=== PATIENT | female | born 1935 | race Caucasian/White ===

== ENCOUNTER 2017-02-08 08:54 | Emergency (ER) | payer OTHER ==
[~2017-02-08] VITALS: Wt 72.6 kg
[~2017-02-08 08:54] MED LIST: AMBIEN5 MG PO; APAP500 MG PO; ASPI-COR81 M1 PO; ASPIRIN BUFFER325 MG PO; ASPIRIN CHEWABL81 MG PO; CALCIUM + D 5001 TAB PO; CARTIA XT180 MG PO; CEFUROXIME AXE250 MG PO; CIPRO500 MG PO; CLONIDINE HYDR0.1 MG PO; CLONIDINE0.3 MG PO; DIGOXIN0.125 MG PO; DILTIAZEM HCL60 MG PEG; DILTIAZEM60 MG PO; DUONEB 3 MG/3 ML3 M1 INH; ELIQUIS2.5 M1 PO; EXELON3 MG PO; EXELON9.5 MG/24 TD; GLUCAGEN1 MG IM; HYDROCHLOROTHIA25 M1 PO; HYDROCODONE BIT1 T11 PO; LANOXIN0.125 MG PO; LANTUS100 U/ML SC; LASIX40 MG PO; LIPITOR80 MG PO; LISINOPRIL10 M1 PO; LISINOPRIL2.5 MG PO; LISINOPRIL40 MG PO; LOPRESSOR50 M1 PO; MACRODANTIN100 M1 PO; METOPROLOL TART50 M1 PO; MIRAPEX0.5 MG PO; NAMENDA-28 PO; NEXICLON X0.09 MG/ML PO; PLAVIX75 MG PO; PRAVASTATIN SOD40 MG PO; STOOL SOFT-STI1 EACH PO; SYNTHROID25 MCG PO; TRICOR145 MG PO; ULTRAM50 MG PO; VITAMIN D-32000 UNI1 PO; ZESTORETIC 12.51 TA3 PO; ZESTRIL10 MG PO
[2017-02-08] MEDS ORDERED: EXEL13.31 PO (09:18)
[2017-02-08] MEDS ORDERED: VISTARIL25 M2 PO (09:19)
[2017-02-08 09:33] LABS: PROTHROMBIN TIME 10.4 SECONDS (9.0-12.4)
[2017-02-08 09:35] LABS: BILIRUBIN NEGATIVE (NEGATIVE); BLOOD TRACE-INTACT (NEGATIVE); CLARITY CLEAR (CLEAR); COLOR YELLOW (YELLOW); GLUCOSE 1+ (NEGATIVE); KETONE NEGATIVE (NEGATIVE); LEUKO ESTERASE NEGATIVE (NEGATIVE); NITRITE NEGATIVE (NEGATIVE); PROTEIN 2+ (NEGATIVE); UROBILINOGEN 0.2 E.U./dl (0.2-1.0)
[2017-02-08 09:36] LABS: BASO % 0.2 % (0.0-1.0); EOS # 0.2 10*3/uL (0.0-0.4); EOS % 2.6 % (1.0-4.0); HEMATOCRIT 39.5 % (37.0-47.0); HEMOGLOBIN 13.3 g/dl (12.0-16.0); LYMPH # 1.2 10*3/uL (1.3-4.4); LYMPH % 14.5 % (27.0-41.0); MEAN CELL VOLUME 92.1 fl (81.0-99.0); MEAN CORPUSCULAR HGB CONC 33.7 g/dl (33.0-37.0); MEAN PLATELET VOLUME 12.4 fl (9.6-12.3); MONO # 0.5 10*3/uL (0.1-1.0); MONO % 5.5 % (3.0-9.0); NEUT # 6.3 10*3/uL (2.3-7.9); NEUT % 76.8 % (47.0-73.0); PLATELET COUNT AUTOMATED 129 10*3/uL (130-400); RED BLOOD COUNT 4.29 10*6/uL (4.10-5.10); WHITE BLOOD COUNT 8.1 10*3/uL (4.8-10.8)
[2017-02-08 09:39] LABS: ALKALINE PHOSPHATASE 163 U/L (45-117); BILIRUBIN, TOTAL 0.7 mg/dl (0.2-1.0); BUN 35 mg/dl (7-24); CARBON DIOXIDE 32 mmol/L (21-32); CHLORIDE 103 mmol/L (98-107); CPK 109 U/L (26-192); EST GLOM FILT AFRICAN AMERICAN > 60 ml/min; GLUCOSE 270 mg/dL (65-99); MAGNESIUM 2.1 mg/dL (1.5-2.1); POTASSIUM 3.4 mmol/L (3.5-5.1); SGOT/AST 36 IU/L (3-35); SGPT/ALT 33 U/L (12-78); SODIUM 145 mmol/L (136-145); TOTAL PROTEIN 6.2 gm/dL (6.4-8.2)
[2017-02-08 09:40] LABS: C-REACTIVE PROTEIN < 0.29 MG/DL (0-0.3); TROPONIN I < 0.015 ng/ml (<0.045)
[2017-02-08 09:46] LABS: HYALINE CAST 0-2
[2017-02-08 09:48] LABS: BACTERIA TRACE
[2017-02-08 09:49] LABS: RBC 0-2 rbc/hpf (0-2); WBC 0-2 wbc/hpf (0-5)
[2017-02-08 09:50] LABS: URINE REFLEX COMMENT NO (NO)
[2017-02-08 11:42] VITALS: BP 152/90
== END 2017-02-08 11:43 | disposition home or self-care (01) ==
LOC: ED 08:54
PROVIDERS: Student in an Organized Health Care Education/Training Program
DX: R53.83 Other fatigue (principal); R53.1 Weakness; F03.90 Unspecified dementia, unspecified severity, without behavioral disturbance, psychotic disturbance, mood disturbance, and anxiety; I99.8 Other disorder of circulatory system; E78.5 Hyperlipidemia, unspecified; I10 Essential (primary) hypertension; E11.9 Type 2 diabetes mellitus without complications; Z88.0 Allergy status to penicillin; Z79.82 Long term (current) use of aspirin; Z79.899 Other long term (current) drug therapy

== ENCOUNTER 2017-10-07 19:17 | Inpatient (IN) | payer OTHER ==
[~2017-10-07] VITALS: Ht 162.5 cm; Wt 72.8 kg
[2017-10-07] VITALS (7 sets, daily range): BP systolic 108–144; BP diastolic 63–79
--- NOTE | ~2017-10-07 | WRIGHTHP ---
[place], [place] PATIENT HISTORY AND PHYSICAL EXAM NAME: SAVANA GRIFFIN [facility] #: [id number] UNIT #: [id number] ROOM: 523 DOCTOR: JOVAN CHAN MD BIRTHDATE: [birth year] DOS: 10/07/2017 HISTORY OF PRESENT ILLNESS: The patient is 81-year-old, very well known to us. She is a resident at [facility]. Yesterday, the staff called saying that she was having some drooping of the left side of her mouth and so she was sent out. She also became dizzy and lightheaded. This morning, the patient does not remember anything about the events preceding her hospitalization. She was evaluated in the ER with a CT brain, which was negative. This morning, the patient feels good, does not have any complaints. Denies any chest pains, palpitations. PAST MEDICAL HISTORY: Significant for: 1. Chronic atrial fibrillation. She is not a candidate for anticoagulants. 2. History of diastolic CHF. 3. Failure to thrive. 4. Multi-infarct dementia. 5. History of CVA with encephalomalacia. 6. Benign hypertension. 7. Chronic lymphedema. 8. Type 2 diabetes mellitus, insulin-dependent. 9. Diabetic nephropathy stage 3. 10. Coronary artery disease of the [place] coronaries. MEDICATIONS: That she is on are aspirin 325 daily, atorvastatin 80 daily, vitamin D 2000 units daily, Colace 100 b.i.d., Lasix 40 b.i.d., levothyroxine 25 mcg at bedtime, lisinopril 10 daily, loratadine 10 daily, Namenda 10 b.i.d., metoprolol 75 b.i.d. ____ 0.5 at bedtime, Lantus 25 q.i.d. SOCIAL HISTORY: Nonsmoker, does not use any alcohol. Resident of [place]. PHYSICAL EXAMINATION: GENERAL: The patient is awake and alert and oriented. VITAL SIGNS: Blood pressure is 125/63, pulse is 64, respirations 18, temperature 97.9. LUNGS: Diminished breath sounds. No wheezes, rales or rhonchi heard. HEART: Regular. ABDOMEN: Obese, soft, nontender. EXTREMITIES: Without any edema. NEUROLOGIC: No neurological deficits noticed. The patient communicates fairly well. ASSESSMENT AND PLAN: 1. The patient with syncopal episode yesterday, possibility of vasovagal syncope, but because of the chronic atrial fibrillation and the fact that she is not on any anticoagulants makes it highly likely that she may have had ischemic event, which has now resolved. 2. Chronic atrial fibrillation, normal ventricular response, not a candidate for anticoagulants. 3. Benign hypertension, controlled. 4. Possibility of urinary tract infection. Urine culture will be sent. [place], [place] PATIENT HISTORY AND PHYSICAL EXAM NAME: SAVANA GRIFFIN UNIT #: [id number] ROOM: 523 DOCTOR: JOVAN CHAN MD BIRTHDATE: [birth year] 5. Acute kidney injury. Slow IV hydration has been ordered. We will hold off on the diuretics. JOVAN CHAN MD CM:HISPHYS:PATIENT HISTORY AND PHYSICAL EXAMINATION 9 JOVAN CHAN MD 10/08/1749 interface
--- NOTE | ~2017-10-07 | DS ---
[place], [place] DISCHARGE SUMMARY NAME[id number] UNIT #: [id number] ROOM: 523 DOCTOR: JOVAN CHAN MD BIRTHDATE: [birth year] DOS: 10/09/2017 DIAGNOSES: 1. Vasovagal episode. 2. Transient ischemic event. 3. Chronic atrial fibrillation, not a candidate for anticoagulants. 4. Benign hypertension. 5. Multi-infarct dementia. 6. History of diastolic congestive heart failure. 7. Acute kidney injury, possibly from diuretics. 8. History of cerebrovascular accident with encephalomalacia. 9. Chronic lymphedema. 10. Type 2 diabetes mellitus, insulin-dependent. 11. Diabetic nephropathy, stage 3. 12. History of coronary artery disease of [place] coronaries. 13. Possible urinary tract infection, urine culture is still pending. HOSPITAL COURSE: The patient is known to us from [facility], was brought into the Emergency Room after the staff noticed that she was becoming dizzy, had a syncopal episode and had a droopy left side of the mouth. Please see H and P for details. She did not have any neurological deficits on admission examination. The patient was found to have acute kidney injury and possibility of UTI. She was placed on IV antibiotics and IV fluids. Lasix dosage was cut back. She has tolerated the IV Rocephin so far. Urine culture is still pending. Carotid Doppler was negative. CT brain attack was negative, except for encephalomalacia from previous CVA. Blood sugars are fairly controlled. The patient is relatively stable this morning and is not having any new problems. Plan is to discharge her to home. She does have quite low blood sugars which need to be carefully monitored at the half-way and possibly cut back on the dosage of the insulin if needed. [place], [place] DISCHARGE SUMMARY NAME: SAVANA GRIFFIN UNIT #: [id number] ROOM: 523 DOCTOR: JOVAN CHAN MD BIRTHDATE: [birth year] JOVAN CHAN MD CM:DISCHARG [id number] JOVAN CHAN MD 10/09/17 1006 interface
--- NOTE | ~2017-10-07 | PR ---
[place], [place] PROGRESS NOTE NAME: SAVANA GRIFFIN [facility] #: [id number] UNIT #: [id number] ROOM: 523 DOCTOR: JOVAN CHAN MD BIRTHDATE: [birth year] DOS: SUBJECTIVE: The patient is not having any new problems. She is awake and alert and fairly oriented this morning, did recognize me. OBJECTIVE: VITAL SIGNS: Graphic trend shows blood pressure is 122/57, pulse of 85, respirations 18, temperature 97.2. LUNGS: Diminished breath sounds. No wheezes, rales, rhonchi heard. HEART: Regular. ABDOMEN: Obese, soft, nontender. EXTREMITIES: Without any edema. DIAGNOSTIC DATA: Ultrasound of the carotids was negative. ASSESSMENT AND PLAN: 1. Syncopal episode, possibly vasovagal. The patient may have had a transient ischemic event which has resolved. She is high risk because of atrial fibrillation and inability to take anticoagulants. 2. Chronic atrial fibrillation, controlled. 3. Benign hypertension, controlled. 4. Possibility of urinary tract infection. Cultures still not available, but the patient is stable and the plan is to discharge her back to [facility] on p.o. antibiotics. JOVAN CHAN MD CM:PNTRANS [phone] JOVAN CHAN MD 10/09/17 1123 interface
[~2017-10-07 19:17] MED LIST changes: +EXEL13.31 PO; +VISTARIL25 M2 PO
[2017-10-07 19:42] LABS: BASO % 0.3 % (0.0-1.0); EOS # 0.1 10*3/uL (0.0-0.4); HEMATOCRIT 42.4 % (37.0-47.0); HEMOGLOBIN 14.1 g/dl (12.0-16.0); LYMPH # 0.6 10*3/uL (1.3-4.4); LYMPH % 9.2 % (27.0-41.0); MEAN CELL VOLUME 93.6 fl (81.0-99.0); MEAN CORPUSCULAR HGB 31.1 pg (27.0-31.0); MEAN CORPUSCULAR HGB CONC 33.3 g/dl (33.0-37.0); MEAN PLATELET VOLUME 12.1 fl (9.6-12.3); MONO # 0.3 10*3/uL (0.1-1.0); MONO % 4.7 % (3.0-9.0); NEUT # 5.9 10*3/uL (2.3-7.9); NEUT % 84.5 % (47.0-73.0); PLATELET COUNT AUTOMATED 125 10*3/uL (130-400); RED BLOOD COUNT 4.53 10*6/uL (4.10-5.10); RED CELL DISTRI WIDTH 12.7 % (0-14.5)
[2017-10-07 20:01] LABS: ALBUMIN 3.1 gm/dl (3.1-4.5); ALKALINE PHOSPHATASE 161 U/L (45-117); BUN 50 mg/dl (7-24); CHLORIDE 103 mmol/L (98-107); LIPASE 261 U/L (73-393); POTASSIUM 4.4 mmol/L (3.5-5.1); SGOT/AST 45 IU/L (3-35); SGPT/ALT 42 U/L (12-78); SODIUM 141 mmol/L (136-145); TOTAL PROTEIN 6.4 gm/dL (6.4-8.2)
[2017-10-07 20:02] LABS: TROPONIN I < 0.015 ng/ml (<0.045)
--- NOTE | 2017-10-07 20:15 | NUR ---
URINE STRAIGHT CATH COMPLETED.PT HAS SLIGHT EXCORIATION TO VAGINAL AREA.NO WOUNDS NOTED.PT TOLERATED WELL.
[2017-10-07 20:32] LABS: BILIRUBIN NEGATIVE (NEGATIVE); BLOOD NEGATIVE (NEGATIVE); CLARITY SL CLOUDY (CLEAR); COLOR YELLOW (YELLOW); GLUCOSE NEGATIVE (NEGATIVE); KETONE NEGATIVE (NEGATIVE); LEUKO ESTERASE TRACE (NEGATIVE); NITRITE NEGATIVE (NEGATIVE); UROBILINOGEN 0.2 E.U./dl (0.2-1.0)
[2017-10-07 20:55] LABS: BACTERIA 2+; EPITHELIAL CELLS 30-35; RBC 0-2 rbc/hpf (0-2)
[2017-10-07] MEDS ORDERED: LORATADINE10 M3 PO (20:57)
[2017-10-07] MEDS ORDERED: GLUCAGON EMERGEN1 M1 IJ (20:59)
[2017-10-07] MEDS ORDERED: NAMENDA10 MG PO (21:00)
[2017-10-07] MEDS ORDERED: LOPRESSOR25 MG PO (21:00)
[2017-10-07] MEDS ORDERED: MIRAPEX0.5 MG PO (21:01)
[2017-10-07] MEDS ORDERED: LANTUS SOL100 UNIT/1 SQ (21:02)
[2017-10-07] MEDS ORDERED: VITAMIN D31000 UNI1 PO (21:02)
[2017-10-07] MEDS ORDERED: PRINIVIL10 MG PO (21:02)
[2017-10-07] MEDS ORDERED: LIPITOR80 MG PO (21:03)
[2017-10-07] MEDS ORDERED: ASPIR-TRIN325 MG PO (21:03)
[2017-10-07] MEDS ORDERED: LEVOTHYROXINE50 MCG PO (21:03)
[2017-10-07] MEDS ORDERED: LASIX40 MG PO (21:04)
[2017-10-07] MEDS ORDERED: ACETAMINOPHEN500 M6 PO (21:05)
[2017-10-07] MEDS ORDERED: DOK100 M1 PO (21:05)
--- NOTE | 2017-10-07 21:16 | NUR ---
PER MD VERBAL ORDER.500ML BOLUS NSS INITIATED.
--- NOTE | 2017-10-07 21:48 | NUR ---
500CC BOLUS NSS COMPLETED.PER MD VERBAL ORDER,REMAINING LITER OF NSS INFUSING @ 125ML/HR.
--- NOTE | 2017-10-07 22:55 | NUR ---
THIS RN CALLED [facility] AND SPOKE TO NURSE REGARDING PATIENT'S MEDICATIONS.
--- NOTE | 2017-10-07 22:55 | NUR ---
THIS RN CALLED [facility] AND SPOKE WITH ROSELINE.ROSELINE UPDATED ON PT ADMISSION STATUS AND DIAGNOSIS.
--- NOTE | 2017-10-07 23:05 | NUR ---
[facility] 81, admitted to , under the services of JOVAN Ervin MD with a diagnosis of EPISODE OF SYNCOPE, METABOLIC ENCEPHALOPATHY, GUANAKO. Chief complaint is BLACKING OUT , SLURRED SPEECH . Patient arrived via ambulance from ER. Monitor applied. Initial assessment completed. Vital signs taken and recorded. JOVAN ERVIN MD notified of admission to the unit. Orders received. See assessment for past medical history, medications and allergies. Patient and/or family oriented to unit. [address] visitation policy reviewed. Clothing/patient valuable form completed. MIKEY POTTER
--- NOTE | 2017-10-07 23:45 | NUR ---
ASSSITED UP TO BATHROOM. GAIT SLOW BUT STEADY. BACK TO BED WITHOUT DIFFICULTY.
--- NOTE | 2017-10-08 02:30 | NUR ---
UP WITH ASSISTANCE OF 1 TO BATHROOM. CONFUSED/FORGETFUL AT TIMES.
--- NOTE | 2017-10-08 06:23 | NUR ---
BLOOD SUGAR 138.
[2017-10-08 08:00] VITALS: BP 124/63
--- NOTE | 2017-10-08 08:00 | NUR ---
SITTING ON SIDE OF BED, ALERT AND ORIENTED TO TIME AND PLACE. STATES SHE IS JUST BAFFLED ABOUT WHAT HAPPENED TO HER YESTERDAY, FEELS FINE TODAY. DR CHAN VISITED AND DISCUSSED PLAN OF CARE WITH PT.
--- NOTE | 2017-10-08 09:00 | NUR ---
PT WENT AND RETURNED FROM CAROTID DOPPLER.
--- NOTE | 2017-10-08 09:10 | NUR ---
IV FLUIDS STARTED ORDERED.
--- NOTE | 2017-10-08 10:11 | NUR ---
SAVANA Lisa [id number] Please refer to the physician's history and physical for past medical history, comorbid conditions, and allergies. Diagnosis: GUANAKO METABOLIC ENCEPHALOPATHY EPISODE OF SYNCOPE Bulmaro Score: 19,LOW OR NO RISK WOUND DESCRIPTIONS: Location of the wound: right second digit Type of wound: traumatic Thickness: Partial Size: 0.1cm 0.4cm x 0.1cm Tunneling: none Undermining: none Sinus Tract: none Presence of Exudate: None Amount: None Color: Red Odor: None Periwound Skin Appearance: Normal Wound edges: approximated Pain (associated with wound): patient denied at time of assessment How does patient state this happened? patient states she shut her finger in a door. If wound is on legs/feet or hands, capillary refill time, pulses, color temp, sensation: Capillary refill <3 seconds Location of the wound: right third digit Type of wound: traumatic Thickness: Partial Size: 0.5cm 2cm x 0.1cm Tunneling: none Undermining: none Sinus Tract: none Presence of Exudate: None Amount: None Color: Red Odor: None Periwound Skin Appearance: Normal Wound edges: approximated Pain (associated with wound): patient denied at time of assessment How does patient state this happened? patient states she shut her finger in a door. If wound is on legs/feet or hands, capillary refill time, pulses, color temp, sensation: Capillary refill <3 seconds Surface the patient is resting on: Isoflex SKIN PREVENTION RECOMMENDATION: 1. Pressure redistribution support surface as appropriate 2. Elevate heels 3. Remove boots/TEDS every shift and reapply 4. Head of bed 30 degrees as tolerated 5. Assess nutrition and hydration 6. Manage moisture 7. Avoid the use of containment devices while in bed 8. Use absorptive products on surfaces limit layers of linens on bed 9. Turn and reposition every 1-2 hours in bed and every 1 hour in chair as tolerated 10. Weight shifts every 15 minutes while up in chair 11. Offloading with pillows or device to keep heels elevated off bed 12. Monitor skin at least every shift 13. Inspect under medical devices twice a day WOUND TREATMENT RECOMMENDATIONS: Cleanse wounds with NS apply sureprep apply bacitracin and cover with bandaid.
[2017-10-08 12:00] VITALS: BP 131/74
[2017-10-08 16:00] VITALS: BP 128/72
--- NOTE | 2017-10-08 16:00 | NUR ---
PHYSICAL THERAPY patient evaluated on level 5. full evaluation to follow. Continue with PT as per poc with min to mod assist, decreased balacne and gait as well as transfers and debility precautions. May require SNF for impaired mobility om order to return to PLOF. Patient is moderate complexity via chart review, tests, and eval: 55086. Thank you for this referral. Karuna Duarte PT
[2017-10-08 20:00] VITALS: BP 123/53
--- NOTE | 2017-10-08 20:00 | NUR ---
PT. PULLED OUT IV & TOOK OFF MONITOR. NEW IV STARTED PER PROTOCOL & LEADS REPLACED. IV SITE WRAPPED WITH KERLIX. PT. CONFUSED & FORGETFUL. BED ALARM ON.
[2017-10-09] VITALS: BP 122/57
--- NOTE | 2017-10-09 07:17 | NUR ---
BMG REPEATED AFTER AIDE CRACKERS AND OJ GIVEN. NEW BGM = 129.
[2017-10-09 08:00] VITALS: BP 130/52
[2017-10-09] MEDS ORDERED: LASIX40 MG PO (08:43)
[2017-10-09] MEDS ORDERED: CEFUROXIME AXE250 MG PO (08:43)
--- NOTE | 2017-10-09 11:30 | NUR ---
NURSE TO NURSE REPORT CALLED TO [facility] AT [facility].
--- NOTE | 2017-10-09 12:10 | NUR ---
Discharge instructions reviewed with patient/family. Patient receptive and verbalizes understanding. Follow-up care arranged. Written instructions given to patient/family. STEPHANIE NAVARRO
--- NOTE | 2017-10-12 13:44 | NUR ---
PHYSICAL THERAPY CO-SIGN I approve of the Phyical Therapy notes written above. JOSESITO BROOKE
== END 2017-10-09 12:10 | DRG 682 ==
LOC: ED 19:17 → EDHOLD 22:33 → 5E 22:40
PROVIDERS: Emergency Medicine Emergency Medical Services; ADMIT Internal Medicine
DX: N17.9 Acute kidney failure, unspecified (principal); G93.41 Metabolic encephalopathy; E11.21 Type 2 diabetes mellitus with diabetic nephropathy; I50.30 Unspecified diastolic (congestive) heart failure; I48.2 Chronic atrial fibrillation; E86.0 Dehydration; F01.50 Vascular dementia, unspecified severity, without behavioral disturbance, psychotic disturbance, mood disturbance, and anxiety; I11.0 Hypertensive heart disease with heart failure; E78.5 Hyperlipidemia, unspecified; I25.10 Atherosclerotic heart disease of native coronary artery without angina pectoris; N39.0 Urinary tract infection, site not specified; T50.2X5A Adverse effect of carbonic-anhydrase inhibitors, benzothiadiazides and other diuretics, initial encounter; I89.0 Lymphedema, not elsewhere classified; Z79.4 Long term (current) use of insulin; Z88.0 Allergy status to penicillin; Z86.73 Personal history of transient ischemic attack (TIA), and cerebral infarction without residual deficits; Z79.899 Other long term (current) drug therapy; Z90.710 Acquired absence of both cervix and uterus; Y92.89 Other specified places as the place of occurrence of the external cause

== ENCOUNTER 2018-01-16 12:25 | Emergency (ER) | payer OTHER ==
[~2018-01-16] VITALS: Ht 172.7 cm; Wt 81.6 kg
[~2018-01-16 12:25] MED LIST changes: +ACETAMINOPHEN500 M6 PO; +ASPIR-TRIN325 MG PO; +DOK100 M1 PO; +GLUCAGON EMERGEN1 M1 IJ; +LANTUS SOL100 UNIT/1 SQ; +LEVOTHYROXINE50 MCG PO; +LOPRESSOR25 MG PO; +LORATADINE10 M3 PO; +NAMENDA10 MG PO; +PRINIVIL10 MG PO; +VITAMIN D31000 UNI1 PO
[2018-01-16 12:46] LABS: BASO % 0.1 % (0.0-1.0); EOS # 0.2 10*3/uL (0.0-0.4); EOS % 3.2 % (1.0-4.0); HEMATOCRIT 42.7 % (37.0-47.0); HEMOGLOBIN 13.8 g/dl (12.0-16.0); LYMPH # 1.6 10*3/uL (1.3-4.4); LYMPH % 21.8 % (27.0-41.0); MEAN CORPUSCULAR HGB 31.4 pg (27.0-31.0); MEAN CORPUSCULAR HGB CONC 32.3 g/dl (33.0-37.0); MEAN PLATELET VOLUME 11.6 fl (9.6-12.3); MONO # 0.6 10*3/uL (0.1-1.0); MONO % 7.7 % (3.0-9.0); NEUT # 4.8 10*3/uL (2.3-7.9); NEUT % 66.8 % (47.0-73.0); PLATELET COUNT AUTOMATED 122 10*3/uL (130-400); WHITE BLOOD COUNT 7.1 10*3/uL (4.8-10.8)
[2018-01-16 12:54] LABS: ACT PARTIAL THROMBO TIME 23.5 SECONDS (20.8-31.5); INTERNATIONAL NORM RATIO 0.9 (2.0-3.5)
[2018-01-16 13:02] LABS: ALKALINE PHOSPHATASE 216 U/L (45-117); BUN 32 mg/dl (7-24); CHLORIDE 101 mmol/L (98-107); CREATININE 1.23 mg/dL (0.55-1.02); POTASSIUM 4.2 mmol/L (3.5-5.1); SGOT/AST 50 IU/L (3-35); SGPT/ALT 62 U/L (12-78); SODIUM 141 mmol/L (136-145); TOTAL PROTEIN 6.4 gm/dL (6.4-8.2)
[2018-01-16 13:03] LABS: TROPONIN I < 0.015 ng/ml (<0.045)
[2018-01-16 13:24] LABS: BILIRUBIN NEGATIVE (NEGATIVE); BLOOD NEGATIVE (NEGATIVE); CLARITY CLEAR (CLEAR); COLOR YELLOW (YELLOW); GLUCOSE 2+ (NEGATIVE); KETONE NEGATIVE (NEGATIVE); LEUKO ESTERASE NEGATIVE (NEGATIVE); NITRITE NEGATIVE (NEGATIVE); UROBILINOGEN 0.2 E.U./dl (0.2-1.0)
[2018-01-16 13:31] LABS: RBC 0-2 rbc/hpf (0-2); WBC 0-2 wbc/hpf (0-5)
[2018-01-16 14:55] VITALS: BP 132/72
== END 2018-01-16 14:38 ==
LOC: ED 12:25
PROVIDERS: Nurse Practitioner Family
DX: R41.0 Disorientation, unspecified (principal); I48.91 Unspecified atrial fibrillation; I11.0 Hypertensive heart disease with heart failure; I50.9 Heart failure, unspecified; E11.65 Type 2 diabetes mellitus with hyperglycemia; E78.5 Hyperlipidemia, unspecified; Z90.710 Acquired absence of both cervix and uterus; Z86.73 Personal history of transient ischemic attack (TIA), and cerebral infarction without residual deficits; Z79.82 Long term (current) use of aspirin; Z79.899 Other long term (current) drug therapy; Z79.4 Long term (current) use of insulin; Z88.0 Allergy status to penicillin

== ENCOUNTER 2018-07-16 03:36 | Emergency (ER) | payer OTHER ==
[~2018-07-16] VITALS: Ht 162.5 cm; Wt 90.7 kg
--- NOTE | ~2018-07-16 | EKG ---
[place], [place] ELECTROCARDIOGRAM REPORT NAME: SAVANA GRIFFIN UNIT #: [id number] ROOM: DOCTOR: EPIPHANY DRAFT REPORT BIRTHDATE: [birth year] [facility] Test Date: 2018-07-16 Test Time: 05:43:21 Pat Name: SAVANA GRIFFIN Department: Room: Gender: F Cork Molder: : 1935 Requested By: BALAJI MCCOY Order Number: [id number] Reading MD: Kimber Angeles MD Measurements Intervals [place] Rate: 60 P: [place]: QRS: -5 QRSD: 90 T: 52 QT: 418 QTc: 418 Interpretive Statements Atrial fibrillation Abnormal R-wave progression, late transition Consider left ventricular hypertrophy No previous ECG available for comparison Electronically Signed On 07-17-2018 14:03:22 PDT by Kimber Angeles MD CM:EKGRPT:ELECTROCARDIOGRAM REPORT [id number] BALAJI TO DRAFT REPORT BALAJI MCCOY DO
[2018-07-16 06:15] LABS: BASO % 0.2 % (0.0-1.0); EOS # 0.3 10*3/uL (0.0-0.4); EOS % 2.9 % (1.0-4.0); HEMATOCRIT 44.6 % (37.0-47.0); HEMOGLOBIN 14.3 g/dl (12.0-16.0); LYMPH # 1.9 10*3/uL (1.3-4.4); LYMPH % 22.3 % (27.0-41.0); MEAN CELL VOLUME 98.9 fl (81.0-99.0); MEAN CORPUSCULAR HGB 31.7 pg (27.0-31.0); MEAN CORPUSCULAR HGB CONC 32.1 g/dl (33.0-37.0); MEAN PLATELET VOLUME 11.5 fl (9.6-12.3); MONO # 0.8 10*3/uL (0.1-1.0); MONO % 9.1 % (3.0-9.0); NEUT # 5.5 10*3/uL (2.3-7.9); PLATELET COUNT AUTOMATED 136 10*3/uL (130-400); RED BLOOD COUNT 4.51 10*6/uL (4.10-5.10); RED CELL DISTRI WIDTH 13.2 % (0-14.5); WHITE BLOOD COUNT 8.5 10*3/uL (4.8-10.8)
[2018-07-16 06:33] LABS: ALBUMIN 3.4 gm/dl (3.1-4.5); ALKALINE PHOSPHATASE 166 U/L (45-117); BUN 54 mg/dl (7-24); CHLORIDE 107 mmol/L (98-107); CREATININE 1.29 mg/dL (0.55-1.02); POTASSIUM 4.1 mmol/L (3.5-5.1); SGOT/AST 31 IU/L (3-35); SGPT/ALT 36 U/L (12-78); SODIUM 145 mmol/L (136-145); TOTAL PROTEIN 6.6 gm/dL (6.4-8.2)
[2018-07-16 06:37] VITALS: BP 193/64
[2018-07-16 06:39] LABS: TROPONIN I < 0.015 ng/ml (<0.045)
[2018-07-16 07:39] LABS: BILIRUBIN NEGATIVE (NEGATIVE); BLOOD NEGATIVE (NEGATIVE); CLARITY CLOUDY (CLEAR); COLOR YELLOW (YELLOW); GLUCOSE NEGATIVE (NEGATIVE); KETONE NEGATIVE (NEGATIVE); LEUKO ESTERASE NEGATIVE (NEGATIVE); NITRITE NEGATIVE (NEGATIVE); PH 7.5 (5.0-9.0); SPECIFIC GRAVITY 1.015 (1.005-1.030); UROBILINOGEN 0.2 E.U./dl (0.2-1.0)
[2018-07-16 07:45] LABS: BACTERIA 4+
[2018-07-16 07:46] LABS: RBC 0-2 rbc/hpf (0-2)
== END 2018-07-16 07:08 ==
LOC: ED 03:36
PROVIDERS: Emergency Medicine
DX: R51 Headache (principal); R42 Dizziness and giddiness; I48.2 Chronic atrial fibrillation; E78.5 Hyperlipidemia, unspecified; E11.9 Type 2 diabetes mellitus without complications; I11.0 Hypertensive heart disease with heart failure; I50.9 Heart failure, unspecified; Z88.0 Allergy status to penicillin; Z79.899 Other long term (current) drug therapy; Z79.82 Long term (current) use of aspirin

== ENCOUNTER 2018-07-28 17:45 | Emergency (ER) | payer MEDICARE, OTHER ==
[~2018-07-28] VITALS: Ht 154.9 cm; Wt 90.7 kg
--- NOTE | ~2018-07-28 | EKG ---
[place], [place] ELECTROCARDIOGRAM REPORT NAME: SAVANA GRIFFIN UNIT #: [id number] ROOM: DOCTOR: EPIPHANY DRAFT REPORT BIRTHDATE: [birth year] [facility] Test Date: 2018-07-28 Test Time: 18:06:07 Pat Name: SAVANA GRIFFIN Department: ER Room: 20 Gender: F Logistics Assistant: EKG.ID : 1935 Requested By: ASA PRESCOTT Order Number: [id number] Reading MD: Kimber Angeles MD Measurements Intervals [place] Rate: 89 P: [place]: QRS: -7 QRSD: 97 T: 75 QT: 380 QTc: 463 Interpretive Statements Atrial fibrillation Probable left ventricular hypertrophy Compared to ECG 07/16/2018 05:43:21 No significant changes Electronically Signed On 07-31-2018 13:26:40 PDT by Kimber Angeles MD CM:EKGRPT:ELECTROCARDIOGRAM REPORT [id number] 1326 ASA PRESCOTT MD EPIPHANY DRAFT REPORT ASA PRESCOTT MD
[2018-07-28 18:36] LABS: BASO % 0.3 % (0.0-1.0); EOS # 0.3 10*3/uL (0.0-0.4); HEMATOCRIT 45.7 % (37.0-47.0); HEMOGLOBIN 14.9 g/dl (12.0-16.0); LYMPH # 2.3 10*3/uL (1.3-4.4); LYMPH % 25.9 % (27.0-41.0); MEAN CELL VOLUME 96.6 fl (81.0-99.0); MEAN CORPUSCULAR HGB 31.5 pg (27.0-31.0); MEAN CORPUSCULAR HGB CONC 32.6 g/dl (33.0-37.0); MEAN PLATELET VOLUME 11.4 fl (9.6-12.3); MONO # 0.8 10*3/uL (0.1-1.0); MONO % 8.9 % (3.0-9.0); NEUT # 5.4 10*3/uL (2.3-7.9); NEUT % 61.7 % (47.0-73.0); PLATELET COUNT AUTOMATED 153 10*3/uL (130-400); RED BLOOD COUNT 4.73 10*6/uL (4.10-5.10); RED CELL DISTRI WIDTH 13.1 % (0-14.5); WHITE BLOOD COUNT 8.7 10*3/uL (4.8-10.8)
[2018-07-28 18:44] LABS: ACT PARTIAL THROMBO TIME 24.1 SECONDS (20.8-31.5)
[2018-07-28 18:54] LABS: ALBUMIN 3.6 gm/dl (3.1-4.5); ALKALINE PHOSPHATASE 223 U/L (45-117); BUN 48 mg/dl (7-24); CHLORIDE 107 mmol/L (98-107); CREATININE 1.28 mg/dL (0.55-1.02); POTASSIUM 4.1 mmol/L (3.5-5.1); SGOT/AST 40 IU/L (3-35); SGPT/ALT 43 U/L (12-78); SODIUM 145 mmol/L (136-145); TOTAL PROTEIN 7.2 gm/dL (6.4-8.2)
[2018-07-28 18:55] LABS: TROPONIN I < 0.015 ng/ml (<0.045)
[2018-07-28] MEDS ORDERED: BASAG SOL SC (18:58)
[2018-07-28 18:59] VITALS: BP 149/89
== END 2018-07-28 19:19 | disposition short-term general hospital (02) ==
LOC: ED 17:45
PROVIDERS: Emergency Medicine
DX: I63.9 Cerebral infarction, unspecified (principal); R47.02 Dysphasia; R53.1 Weakness; I13.0 Hypertensive heart and chronic kidney disease with heart failure and stage 1 through stage 4 chronic kidney disease, or unspecified chronic kidney disease; E11.22 Type 2 diabetes mellitus with diabetic chronic kidney disease; N18.3 Chronic kidney disease, stage 3 (moderate); I50.9 Heart failure, unspecified; I48.2 Chronic atrial fibrillation; E78.5 Hyperlipidemia, unspecified; Z88.0 Allergy status to penicillin; Z79.899 Other long term (current) drug therapy; Z79.4 Long term (current) use of insulin; Z79.82 Long term (current) use of aspirin; Z90.710 Acquired absence of both cervix and uterus; Z86.73 Personal history of transient ischemic attack (TIA), and cerebral infarction without residual deficits

== ENCOUNTER 2018-08-29 00:31 | Inpatient (IN) | payer MEDICARE, OTHER ==
[~2018-08-29] VITALS: Ht 162.5 cm; Wt 81.6 kg
[2018-08-29] VITALS (9 sets, daily range): BP systolic 108–153; BP diastolic 59–86
--- NOTE | ~2018-08-29 | WRIGHTHP ---
[place], [place] PATIENT HISTORY AND PHYSICAL EXAM NAME: SAVANA GRIFFIN [facility] #: [id number] UNIT #: [id number] ROOM: 523 DOCTOR: JOVAN CHAN MD BIRTHDATE: [birth year] DOS: 08/29/2018 HISTORY OF PRESENT ILLNESS: The patient is 82-year-old. The patient choked on a peanut butter sandwich at the half-way, became hypoxic and went into respiratory failure, was transferred to the Emergency Room. Most of material was suctioned out by the nursing staff in the ambulance and the EMT. By the time she arrived to the Emergency Room, she was still pretty short of breath and was on 15 liters of oxygen. The patient this morning is doing well, does not have any complaints. She is awake and alert and back at her baseline. She did eat her pureed diet and tolerated it, did not have any complaints of chest pains or palpitations, did not know the actual events leading to her admission. PAST MEDICAL HISTORY: Significant for: 1. History of TIA in 2017. 2. Chronic atrial fibrillation, not a candidate for Coumadin. 3. Benign hypertension. 4. Multiinfarct dementia. 5. History of diastolic CHF. 6. Chronic kidney disease stage 3. 7. Chronic lymphedema. 8. Type 2 diabetes mellitus, insulin-dependent. 9. History of coronary artery disease. MEDICATIONS: That the patient is currently on are aspirin 81 daily, Eliquis 5 b.i.d., atorvastatin 80 daily, Bumex 1 mg daily, levothyroxine 25 mcg daily, lisinopril 10 daily, loratadine 10 daily, Namenda 10 b.i.d., metoprolol 100 b.i.d., MiraLax 17 grams daily, potassium 20 daily, Mirapex 0.5 at bedtime, Lantus 25 units in the morning. SOCIAL HISTORY: Nonsmoker, does not use any alcohol. PHYSICAL EXAMINATION: GENERAL: She is awake and alert and oriented to person and place, but not time. NECK: Supple. No lymph nodes. LUNGS: Diminished breath sounds. No wheezes, rales or rhonchi heard this morning. HEART: Regular. ABDOMEN: Obese, soft and nontender. EXTREMITIES: No edema on the right. Left leg is swollen and red with some chronic skin changes noted. ASSESSMENT AND PLAN: 1. The patient with possible aspiration resulting in acute respiratory failure. The patient is back at her baseline this morning. We will go ahead and arrange for a CT of the chest to make sure that we rule out aspiration pneumonia and if it is negative, the plan is to discharge her back to the half-way and continue to closely watch at the half-way, avoid regular diet and continue with the pureed diet. 2. Left leg swelling, possible early cellulitis. IV antibiotics are already on board. The patient will have a venous Doppler to rule out deep venous [place], [place] PATIENT HISTORY AND PHYSICAL EXAM [facility]: [facility] [id number] UNIT #: [id number] ROOM: 523 DOCTOR: JOVAN CHAN MD BIRTHDATE: [birth year] thrombosis. 3. Benign hypertension, controlled. 4. Chronic atrial fibrillation, not a candidate for Coumadin. 5. Multiinfarct dementia. Continue home meds. JOVAN CHAN MD CM:HISPHYS:PATIENT HISTORY AND PHYSICAL EXAMINATION 0 JOVAN CHAN MD 08/29/18910 interface
--- NOTE | ~2018-08-29 | EKG ---
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
--- NOTE | ~2018-08-29 | PR ---
[place], [place] PROGRESS NOTE NAME: SAVANA GRIFFIN [facility] #: [id number] UNIT #: [id number] ROOM: 523 DOCTOR: JOVAN CHAN MD BIRTHDATE: [birth year] DOS: SUBJECTIVE: The patient is doing fine without any complaints. Appreciate Speech input. OBJECTIVE: VITAL SIGNS: Blood pressure is 138/74, pulse of 74, respirations 20, temperature 97.7. LUNGS: Clear. HEART: Regular. ABDOMEN: Obese, soft. EXTREMITIES: Without any edema. LABORATORY DATA: Normal white cell count noted. Sodium and potassium normal. Blood sugar 115, BUN 31, creatinine 1.23. ASSESSMENT AND PLAN: 1. Right upper lobe pneumonia, aspiration with negative blood cultures. 2. Urinary tract infection with Escherichia coli, on IV antibiotics 3. Lactic acidosis, resolved. 4. Methicillin-resistant Staphylococcus aureus of the nares, on Bactroban ointment. The patient is stable. The plan is to discharge to home today to follow up as an outpatient. JOVAN CHAN MD CM:PNTRANS 1 15 JOVAN CHAN MD 08/31/182115 interface
--- NOTE | ~2018-08-29 | PR ---
[place], [place] PROGRESS NOTE NAME: SAVANA GRIFFIN [facility] #: [id number] UNIT #: [id number] ROOM: 523 DOCTOR: JOVAN CHAN MD BIRTHDATE: [birth year] DOS: 08/30/2018 SUBJECTIVE: The patient is sitting up, eating breakfast. She had toast on her breakfast along with some oatmeal. She did not seem to have any trouble this morning. OBJECTIVE: VITAL SIGNS: Blood pressure is 152/71, pulse of 74, respirations 18, temperature 97.5. LUNGS: Clear this morning. HEART: Irregular. ABDOMEN: Obese. EXTREMITIES: Without any edema. LABORATORY DATA: MRSA of the nares was positive. LABORATORY DATA: Urine culture shows heavy Gram-negative bacteria, no identification available. Venous Doppler showed no DVT in the left lower leg and a CT of the chest showed left upper lobe pneumonia, most likely aspiration. ASSESSMENT AND PLAN: 1. Aspiration pneumonia, on IV antibiotics. 2. Urinary tract infection with heavy Gram-negative bacteria, identification is not available yet. 3. High risk for aspiration. The patient is advised not to eat the toast. Soft diet will be started and Speech consult will be obtained. 4. Lactic acidosis, possibly from underlying pneumonia and sepsis, which is resolved. JOVAN CHAN MD CM:PNTRANS [id number] JOVAN CHAN MD 08/31/18 0609 interface
--- NOTE | ~2018-08-29 | DS ---
[place], [place] DISCHARGE SUMMARY NAME: SAVANA GRIFFIN [facility] #: [id number] UNIT #: [id number] ROOM: 523 DOCTOR: JOVAN CHAN MD BIRTHDATE: [birth year] DOS: 08/31/2018 DIAGNOSES: 1. Aspiration pneumonia. 2. Urinary tract infection with Escherichia coli. 3. Methicillin-resistant Staphylococcus aureus of the nares. 4. Speech therapy consultation, which recommended upright positioning with meal small bites, chewing thoroughly and moistening foods. 5. History of transient ischemic attack. 6. Multiinfarct dementia. 7. Diastolic congestive heart failure. 8. Chronic atrial fibrillation. 9. Type 2 diabetes mellitus, insulin-dependent. 10. History of coronary artery disease. 11. History of diastolic congestive heart failure. MEDICATIONS: The patient will be discharged on Ceftin 250 twice a day for 7 days. Follow speech recommendation. DuoNebs q. 6 hours for 5 days, loratadine 10 daily, Eliquis 5 b.i.d., atorvastatin 80 daily, metoprolol 100 b.i.d., lisinopril 10 daily, pramipexole 0.5 at bedtime, Namenda 10 b.i.d., potassium 20 daily, Bumex 1 mg daily, MiraLax 17 grams daily, Lantus 25 units every day, levothyroxine 25 mcg daily, vitamin D 2000 units daily and Bactroban ointment for local application to the nares twice a day for 7 days. HOSPITAL COURSE: The patient is 82 years old. The patient comes in with complaints of difficulty breathing. Please refer to H and P for details. She has acute respiratory failure after choking on some peanut butter sandwich. After evaluation, the patient was ordered a CT of the chest, which showed a right upper lobe pneumonia. Urine culture was sent and blood cultures were sent. Urine culture showed E. coli. Blood cultures were negative. MRSA of the nares was positive. The patient is placed on multiple IV antibiotics and IV fluids, kept n.p.o. Speech therapy was consulted. The patient's recommendation is as above. The patient is doing much better, does not have any new complaints. The plan is to discharge to home today. The patient is advised to follow the speech recommendation. Please do a repeat chest x-ray after the completion of antibiotics. [place], [place] DISCHARGE SUMMARY NAME: SAVANA GRIFFIN UNIT #: [id number] ROOM: 523 DOCTOR: JOVAN CHAN MD BIRTHDATE: [birth year] JOVAN CHAN MD CM:KETTY [id number] JOVAN CHAN MD 08/31/18 1201 interface
[~2018-08-29 00:31] MED LIST changes: +BASAG SOL SC
[2018-08-29 00:59] LABS: BILIRUBIN NEGATIVE (NEGATIVE); BLOOD 1+ (NEGATIVE); CLARITY CLOUDY (CLEAR); COLOR YELLOW (YELLOW); GLUCOSE NEGATIVE (NEGATIVE); KETONE NEGATIVE (NEGATIVE); LEUKO ESTERASE TRACE (NEGATIVE); NITRITE NEGATIVE (NEGATIVE); PH 5.5 (5.0-9.0); SPECIFIC GRAVITY >= 1.030 (1.005-1.030)
[2018-08-29 01:04] LABS: BASO # 0.1 10*3/uL (0.0-0.1); BASO % 0.6 % (0.0-1.0); EOS # 0.2 10*3/uL (0.0-0.4); EOS % 1.9 % (1.0-4.0); HEMATOCRIT 47.1 % (37.0-47.0); LYMPH # 2.4 10*3/uL (1.3-4.4); LYMPH % 24.5 % (27.0-41.0); MEAN CELL VOLUME 98.7 fl (81.0-99.0); MEAN CORPUSCULAR HGB 31.4 pg (27.0-31.0); MEAN CORPUSCULAR HGB CONC 31.8 g/dl (33.0-37.0); MEAN PLATELET VOLUME 12.2 fl (9.6-12.3); MONO # 0.6 10*3/uL (0.1-1.0); NEUT # 6.6 10*3/uL (2.3-7.9); NEUT % 66.5 % (47.0-73.0); PLATELET COUNT AUTOMATED 165 10*3/uL (130-400); RED BLOOD COUNT 4.77 10*6/uL (4.10-5.10); RED CELL DISTRI WIDTH 12.9 % (0-14.5); WHITE BLOOD COUNT 9.9 10*3/uL (4.8-10.8)
[2018-08-29 01:24] LABS: BACTERIA 2+; RBC 16-20 rbc/hpf (0-2)
[2018-08-29 01:28] LABS: ALBUMIN 3.2 gm/dl (3.1-4.5); CREATININE 1.63 mg/dL (0.55-1.02); POTASSIUM 4.2 mmol/L (3.5-5.1); TOTAL PROTEIN 6.7 gm/dL (6.4-8.2)
[2018-08-29] MEDS ORDERED: ELIQUIS5 M1 PO (03:34)
[2018-08-29] MEDS ORDERED: GLYCOLAX119 GM PO (03:35)
[2018-08-29] MEDS ORDERED: BUMETANIDE1 MG PO (03:36)
[2018-08-29] MEDS ORDERED: POTASSIUM CHLO20 ME3 PO (03:37)
[2018-08-29] MEDS ORDERED: LOPRESSOR100 M1 PO (03:38)
[2018-08-29] MEDS ORDERED: ASPIRIN ADULT L81 M1 PO (03:39)
[2018-08-29] MEDS ORDERED: LANTUS SOL100 UNIT/1 SQ ×2 (03:40→10:46)
[2018-08-30] VITALS: BP 152/71
[2018-08-30 12:00] VITALS: BP 143/98
[2018-08-30 16:00] VITALS: BP 148/88
[2018-08-30 20:00] VITALS: BP 153/62
[2018-08-31] VITALS: BP 133/51
[2018-08-31 05:46] LABS: CREATININE 1.23 mg/dL (0.55-1.02); POTASSIUM 4.2 mmol/L (3.5-5.1)
[2018-08-31 05:49] LABS: BASO % 0.2 % (0.0-1.0); EOS # 0.2 10*3/uL (0.0-0.4); EOS % 2.5 % (1.0-4.0); HEMATOCRIT 43.9 % (37.0-47.0); HEMOGLOBIN 14.1 g/dl (12.0-16.0); LYMPH # 1.5 10*3/uL (1.3-4.4); LYMPH % 17.6 % (27.0-41.0); MEAN CELL VOLUME 98.2 fl (81.0-99.0); MEAN CORPUSCULAR HGB 31.5 pg (27.0-31.0); MEAN CORPUSCULAR HGB CONC 32.1 g/dl (33.0-37.0); MEAN PLATELET VOLUME 12.3 fl (9.6-12.3); MONO # 0.7 10*3/uL (0.1-1.0); MONO % 8.5 % (3.0-9.0); NEUT # 5.9 10*3/uL (2.3-7.9); PLATELET COUNT AUTOMATED 132 10*3/uL (130-400); RED BLOOD COUNT 4.47 10*6/uL (4.10-5.10); RED CELL DISTRI WIDTH 12.9 % (0-14.5); WHITE BLOOD COUNT 8.3 10*3/uL (4.8-10.8)
[2018-08-31 08:00] VITALS: BP 138/74
== END 2018-08-31 11:30 | disposition other institution (70) | DRG 871 ==
LOC: ED 00:31 → 5E 02:22 → EDHOLD 02:22 → 5E 02:43
PROVIDERS: Emergency Medicine; Internal Medicine
DX: A41.9 Sepsis, unspecified organism (principal); J69.0 Pneumonitis due to inhalation of food and vomit; J96.01 Acute respiratory failure with hypoxia; N39.0 Urinary tract infection, site not specified; I50.32 Chronic diastolic (congestive) heart failure; I13.0 Hypertensive heart and chronic kidney disease with heart failure and stage 1 through stage 4 chronic kidney disease, or unspecified chronic kidney disease; F03.90 Unspecified dementia, unspecified severity, without behavioral disturbance, psychotic disturbance, mood disturbance, and anxiety; I48.2 Chronic atrial fibrillation; I25.10 Atherosclerotic heart disease of native coronary artery without angina pectoris; E11.22 Type 2 diabetes mellitus with diabetic chronic kidney disease; N18.3 Chronic kidney disease, stage 3 (moderate); M17.12 Unilateral primary osteoarthritis, left knee; B96.20 Unspecified Escherichia coli [E. coli] as the cause of diseases classified elsewhere; M79.89 Other specified soft tissue disorders; T17.928A Food in respiratory tract, part unspecified causing other injury, initial encounter; X58.XXXA Exposure to other specified factors, initial encounter; Y93.89 Activity, other specified; Y92.89 Other specified places as the place of occurrence of the external cause; Y99.8 Other external cause status; Z86.73 Personal history of transient ischemic attack (TIA), and cerebral infarction without residual deficits; Z88.0 Allergy status to penicillin; Z87.01 Personal history of pneumonia (recurrent); Z87.440 Personal history of urinary (tract) infections; Z90.710 Acquired absence of both cervix and uterus; Z82.49 Family history of ischemic heart disease and other diseases of the circulatory system

== ENCOUNTER 2018-09-14 03:30 | Emergency (ER) | payer MEDICARE, OTHER ==
[~2018-09-14] VITALS: Ht 162.5 cm; Wt 86.2 kg
[~2018-09-14 03:30] MED LIST changes: +ASPIRIN ADULT L81 M1 PO; +BUMETANIDE1 MG PO; +ELIQUIS5 M1 PO; +GLYCOLAX119 GM PO; +LOPRESSOR100 M1 PO; +POTASSIUM CHLO20 ME3 PO
[2018-09-14 03:37] VITALS: BP 137/82
== END 2018-09-14 06:27 | disposition other institution (70) ==
LOC: ED 03:30
DX: I13.0 Hypertensive heart and chronic kidney disease with heart failure and stage 1 through stage 4 chronic kidney disease, or unspecified chronic kidney disease (principal); E11.22 Type 2 diabetes mellitus with diabetic chronic kidney disease; N18.3 Chronic kidney disease, stage 3 (moderate); I50.9 Heart failure, unspecified; M13.862 Other specified arthritis, left knee; I48.2 Chronic atrial fibrillation; E78.5 Hyperlipidemia, unspecified; F02.80 Dementia in other diseases classified elsewhere, unspecified severity, without behavioral disturbance, psychotic disturbance, mood disturbance, and anxiety; Z79.4 Long term (current) use of insulin; Z88.0 Allergy status to penicillin; Z79.899 Other long term (current) drug therapy; Z86.73 Personal history of transient ischemic attack (TIA), and cerebral infarction without residual deficits

== ENCOUNTER 2018-10-28 06:11 | Emergency (ER) | payer MEDICARE, OTHER ==
[~2018-10-28] VITALS: Ht 167.6 cm; Wt 85.3 kg
--- NOTE | ~2018-10-28 | EKG ---
[place], [place] ELECTROCARDIOGRAM REPORT NAME: SAVANA GRIFFIN UNIT #: [id number] ROOM: DOCTOR: EPIPHANY DRAFT REPORT BIRTHDATE: [birth year] [place] Test Date: 2018-10-28 Test Time: 06:39:35 Pat Name: SAVANA GRIFFIN Department: Room: Gender: F Hood Maker: Evelyn Ramirez : 1935 Requested By: JABARI BENEDICT Order Number: [id number] Reading MD: Scott Guerrero MD Measurements Intervals [place] Rate: 102 P: [place]: QRS: 5 QRSD: 92 T: 163 QT: 369 QTc: 481 Interpretive Statements Atrial fibrillation Probable LVH with secondary repol abnrm Compared to ECG 08/29/2018 01:49:44 No significant changes Electronically Signed On 10-28-2018 13:42:05 PST by Scott Guerrero MD CM:EKGRPT:ELECTROCARDIOGRAM REPORT [id number] 1342 JABARI BENEDICT MD EPIPHANY DRAFT REPORT JABARI BENEDICT MD
[2018-10-28] MEDS ORDERED: Synthroid,Levo25 MCG PO (06:47)
[2018-10-28] MEDS ORDERED: ASPIRIN CHEWABL81 MG PO (06:48)
[2018-10-28] MEDS ORDERED: VITAMIN D31000 UNI1 PO (06:49)
[2018-10-28] MEDS ORDERED: TYLENOL325 M1 PO (06:50)
[2018-10-28 06:51] LABS: ACT PARTIAL THROMBO TIME 34.3 SECONDS (20.8-31.5); INTERNATIONAL NORM RATIO 1.1 (2.0-3.5)
[2018-10-28] MEDS ORDERED: Ipratropium Brom3 ML INH (06:52)
[2018-10-28] MEDS ORDERED: LEVAQUIN750 M1 PO (06:52)
[2018-10-28 06:59] LABS: ALBUMIN 2.7 gm/dl (3.1-4.5); ALKALINE PHOSPHATASE 122 U/L (45-117); BUN 46 mg/dl (7-24); CHLORIDE 107 mmol/L (98-107); POTASSIUM 4.5 mmol/L (3.5-5.1); SGOT/AST 31 IU/L (3-35); SGPT/ALT 23 U/L (12-78); SODIUM 141 mmol/L (136-145); TOTAL PROTEIN 6.5 gm/dL (6.4-8.2)
[2018-10-28 07:05] LABS: TROPONIN I < 0.015 ng/ml (<0.045)
[2018-10-28 07:26] VITALS: BP 144/78
[2018-10-28 07:38] LABS: BASO % 0.3 % (0.0-1.0); EOS # 0.1 10*3/uL (0.0-0.4); EOS % 1.1 % (1.0-4.0); HEMATOCRIT 40.9 % (37.0-47.0); HEMOGLOBIN 12.6 g/dl (12.0-16.0); LYMPH # 1.4 10*3/uL (1.3-4.4); LYMPH % 11.9 % (27.0-41.0); MEAN CELL VOLUME 98.6 fl (81.0-99.0); MEAN CORPUSCULAR HGB 30.4 pg (27.0-31.0); MEAN CORPUSCULAR HGB CONC 30.8 g/dl (33.0-37.0); MEAN PLATELET VOLUME 12.1 fl (9.6-12.3); MONO % 9.2 % (3.0-9.0); NEUT # 8.7 10*3/uL (2.3-7.9); PLATELET COUNT AUTOMATED 126 10*3/uL (130-400); RED BLOOD COUNT 4.15 10*6/uL (4.10-5.10); RED CELL DISTRI WIDTH 13.4 % (0-14.5); WHITE BLOOD COUNT 11.3 10*3/uL (4.8-10.8)
== END 2018-10-28 09:46 | disposition home or self-care (01) ==
LOC: ED 06:11
PROVIDERS: Emergency Medicine Emergency Medical Services
DX: S70.02XA Contusion of left hip, initial encounter (principal); E11.22 Type 2 diabetes mellitus with diabetic chronic kidney disease; I13.0 Hypertensive heart and chronic kidney disease with heart failure and stage 1 through stage 4 chronic kidney disease, or unspecified chronic kidney disease; N18.3 Chronic kidney disease, stage 3 (moderate); I50.9 Heart failure, unspecified; I48.91 Unspecified atrial fibrillation; E78.5 Hyperlipidemia, unspecified; Z88.0 Allergy status to penicillin; Z86.73 Personal history of transient ischemic attack (TIA), and cerebral infarction without residual deficits; Z79.899 Other long term (current) drug therapy; Z79.4 Long term (current) use of insulin; Z79.82 Long term (current) use of aspirin; Z79.2 Long term (current) use of antibiotics; W01.0XXA Fall on same level from slipping, tripping and stumbling without subsequent striking against object, initial encounter; Y93.89 Activity, other specified; Y92.129 Unspecified place in nursing home as the place of occurrence of the external cause; Y99.8 Other external cause status

== ENCOUNTER 2018-10-31 12:20 | Emergency (ER) | payer MEDICARE, OTHER ==
[~2018-10-31] VITALS: Ht 162.5 cm; Wt 85.3 kg
[~2018-10-31 12:20] MED LIST changes: +Ipratropium Brom3 ML INH; +LEVAQUIN750 M1 PO; +Synthroid,Levo25 MCG PO; +TYLENOL325 M1 PO
[2018-10-31 16:14] VITALS: BP 142/47
== END 2018-10-31 17:08 | disposition other institution (70) ==
LOC: ED 12:20
DX: M25.552 Pain in left hip (principal); M25.562 Pain in left knee; Z88.0 Allergy status to penicillin; Z79.899 Other long term (current) drug therapy; Z79.4 Long term (current) use of insulin; Z79.82 Long term (current) use of aspirin; Z79.2 Long term (current) use of antibiotics; Z90.710 Acquired absence of both cervix and uterus; W18.39XA Other fall on same level, initial encounter; Y93.89 Activity, other specified; Y92.89 Other specified places as the place of occurrence of the external cause; Y99.8 Other external cause status

== ENCOUNTER 2018-11-08 10:20 | Emergency (ER) | payer MEDICARE, OTHER ==
[~2018-11-08] VITALS: Wt 86.2 kg
[2018-11-08 10:32] VITALS: BP 142/65
== END 2018-11-08 13:42 | disposition home or self-care (01) ==
LOC: ED 10:20
DX: M25.552 Pain in left hip (principal); I13.0 Hypertensive heart and chronic kidney disease with heart failure and stage 1 through stage 4 chronic kidney disease, or unspecified chronic kidney disease; E11.22 Type 2 diabetes mellitus with diabetic chronic kidney disease; N18.3 Chronic kidney disease, stage 3 (moderate); I50.9 Heart failure, unspecified; I48.91 Unspecified atrial fibrillation; E78.5 Hyperlipidemia, unspecified; Z79.899 Other long term (current) drug therapy; Z79.82 Long term (current) use of aspirin; Z79.4 Long term (current) use of insulin; Z90.710 Acquired absence of both cervix and uterus

== ENCOUNTER 2018-11-15 00:46 | Emergency (ER) | payer MEDICARE, OTHER ==
[~2018-11-15] VITALS: Ht 165.1 cm; Wt 90.7 kg
[2018-11-15 00:49] VITALS: BP 130/60
[2018-11-15 01:56] LABS: BASO % 0.4 % (0.0-1.0); EOS # 0.3 10*3/uL (0.0-0.4); EOS % 3.3 % (1.0-4.0); HEMATOCRIT 37.1 % (37.0-47.0); HEMOGLOBIN 11.6 g/dl (12.0-16.0); LYMPH # 1.6 10*3/uL (1.3-4.4); MEAN CELL VOLUME 101.4 fl (81.0-99.0); MEAN CORPUSCULAR HGB 31.7 pg (27.0-31.0); MEAN CORPUSCULAR HGB CONC 31.3 g/dl (33.0-37.0); MEAN PLATELET VOLUME 11.6 fl (9.6-12.3); MONO # 0.8 10*3/uL (0.1-1.0); MONO % 9.4 % (3.0-9.0); NEUT # 5.7 10*3/uL (2.3-7.9); NEUT % 67.5 % (47.0-73.0); PLATELET COUNT AUTOMATED 205 10*3/uL (130-400); RED BLOOD COUNT 3.66 10*6/uL (4.10-5.10); RED CELL DISTRI WIDTH 15.2 % (0-14.5); WHITE BLOOD COUNT 8.4 10*3/uL (4.8-10.8)
[2018-11-15 02:13] LABS: ALBUMIN 2.1 gm/dl (3.1-4.5); ALKALINE PHOSPHATASE 106 U/L (45-117); BUN 43 mg/dl (7-24); CHLORIDE 114 mmol/L (98-107); CREATININE 1.66 mg/dL (0.55-1.02); POTASSIUM 5.3 mmol/L (3.5-5.1); SGOT/AST 32 IU/L (3-35); SGPT/ALT 14 U/L (12-78); SODIUM 148 mmol/L (136-145); TOTAL PROTEIN 6.1 gm/dL (6.4-8.2)
[2018-11-15 02:17] LABS: TROPONIN I < 0.015 ng/ml (<0.045)
[2018-11-15 05:38] LABS: BILIRUBIN NEGATIVE (NEGATIVE); BLOOD NEGATIVE (NEGATIVE); CLARITY CLEAR (CLEAR); COLOR YELLOW (YELLOW); GLUCOSE NEGATIVE (NEGATIVE); KETONE NEGATIVE (NEGATIVE); LEUKO ESTERASE NEGATIVE (NEGATIVE); NITRITE POSITIVE (NEGATIVE); PH 5.5 (5.0-9.0); UROBILINOGEN 0.2 E.U./dl (0.2-1.0)
[2018-11-15 05:46] LABS: BACTERIA 2+
[2018-11-15] MEDS ORDERED: MACROBID100 M1 PO (06:14)
== END 2018-11-15 07:00 | disposition home or self-care (01) ==
LOC: ED 00:46
PROVIDERS: Emergency Medicine
DX: R41.82 Altered mental status, unspecified (principal); N39.0 Urinary tract infection, site not specified; M25.572 Pain in left ankle and joints of left foot; M79.672 Pain in left foot; R45.6 Violent behavior; F03.90 Unspecified dementia, unspecified severity, without behavioral disturbance, psychotic disturbance, mood disturbance, and anxiety; R60.0 Localized edema; E11.9 Type 2 diabetes mellitus without complications; E78.5 Hyperlipidemia, unspecified; I10 Essential (primary) hypertension; I48.91 Unspecified atrial fibrillation; M13.862 Other specified arthritis, left knee; I13.0 Hypertensive heart and chronic kidney disease with heart failure and stage 1 through stage 4 chronic kidney disease, or unspecified chronic kidney disease; E11.22 Type 2 diabetes mellitus with diabetic chronic kidney disease; N18.3 Chronic kidney disease, stage 3 (moderate); I50.9 Heart failure, unspecified; Z88.0 Allergy status to penicillin; Z79.899 Other long term (current) drug therapy; Z79.82 Long term (current) use of aspirin; Z79.4 Long term (current) use of insulin

== ENCOUNTER 2018-11-18 09:00 | Inpatient (IN) | payer MEDICARE, OTHER ==
[2018-11-18] VITALS (51 sets, daily range): BP systolic 50–154; BP diastolic 0–98
[~2018-11-18] VITALS: Ht 165.1 cm; Wt 81.2 kg
--- NOTE | ~2018-11-18 | EKG ---
[place], [place] ELECTROCARDIOGRAM REPORT NAME: SAVANA GRIFFIN UNIT #: [id number] ROOM: [facility] DOCTOR: JAVY DRAFT REPORT BIRTHDATE: [birth year] [facility] Test Date: 2018-11-18 Test Time: 11:32:11 Pat Name: SAVANA GRIFFIN Department: Room: [place] [address] Gender: F Weapons Designer: SRAVAN : 1935 Requested By: LEÓN MOORE Order Number: [id number] Reading MD: Yi Gamboa MD Measurements Intervals [place] Rate: 141 P: MA: QRS: 10 QRSD: 82 T: QT: 306 QTc: 469 Interpretive Statements Atrial fibrillation with rapid V-rate Borderline low voltage, extremity leads Consider left ventricular hypertrophy Nonspecific T abnormalities, lateral leads Baseline wander in lead(s) V3,V6 Compared to ECG 10/28/2018 06:39:35 T-wave abnormality now present Electronically Signed On 11-18-2018 16:07:46 PST by Yi Gamboa MD CM:EKGRPT:ELECTROCARDIOGRAM REPORT [id number] LEÓN TO DRAFT REPORT LEÓN MOORE DO
--- NOTE | ~2018-11-18 | CON ---
[place], [place] REPORT OF CONSULTATION [id number] UNIT #: [id number] ROOM: [facility] DOCTOR: HARRIS MAHMOOD MD,JOHNNIE BIRTHDATE: [birth year] DOS: 11/18/2018 PULMONARY CRITICAL CARE EVALUATION AND CONSULTATION CONSULTATION REQUESTED BY: Philip Clark MD REASON FOR CONSULTATION: For the assessment of current acute respiratory failure. HISTORY OF PRESENT ILLNESS: This is an 82-year-old white female patient who has been admitted to the hospital this morning and the patient was brought from the nursing facility. She has not been able to give me any history. All the history currently documented from review of the medical record by the other physician's note and the nurse's notes. It was noted that the patient has been assessed on 11/15/2018 in the Emergency Room as well for changes of the mental status. She has been noted without any acute distress. The patient was assessed in the Emergency Room. She was noted with the improvement in the mental status. The patient was assessed in the Emergency Room and sent back to the [facility] as per note assessed. She has been brought to the hospital by the ambulance today as well at approximately 9:00. Worsening of the mental status has been noted. She has also pain, which is described in the left hip as well as in the left leg. I am not sure if the patient has fallen at the nursing facility or not. The patient was assessed in the Emergency Room and then later on admitted to the Telemetry floor. In about 10-15 minutes, the patient noted with further worsening of the mental status with hypotension, blood pressure systolic recorded with palpation by the nursing staff about 50. She was transferred to the Intensive Care Unit. She was unable to have a pulse oxygen saturation measured. She has been intubated and started on mechanical ventilation this morning by Dr. Berman. The patient is currently intubated, noted on mechanical ventilation. She does not have any good venous access as well. Intraosseous route was obtained for this patient on the left lower extremity for the infusion of medications. The patient has been currently intubated, noted not to be responsive to vocal commands, but noted with some spontaneous movement of the body at times. The pulse oxygen saturation about 78-80% by the EMS staff has been reported in the note from the Emergency Room. The patient also reported a wound in the left foot as well as the heel area. REVIEW OF SYSTEMS: Certainly could not be performed at the present time. PAST MEDICAL HISTORY: 1. Known with multiple medical problems that include chronic kidney disease, stage 3. 2. History of gastrointestinal bleeding. 3. Osteoarthritis of the left knee. 4. History of dysphagia, which was noted oropharyngeal during her admission in the hospital. Diet was modified. 5. Past history of CVA without any residual deficit reported. 6. Type 2 diabetes mellitus. 7. Multi-infarct dementia. 8. Permanent atrial fibrillation. [place], [place] REPORT OF CONSULTATION NAME: SAVANA GRIFFIN UNIT #: [id number] ROOM: [facility] DOCTOR[facility]: [birth year] 9. Hyperlipidemia. 10. Essential hypertension. 11. Past history of urinary tract infection as well treated in 2018. PAST SURGICAL HISTORY: Reported for a hysterectomy. SOCIAL HISTORY: The patient was not reported with tobacco, alcohol or any illicit drugs. FAMILY HISTORY: Reported for hypertension. MEDICATIONS: From the half-way reported as use of DuoNeb, Eliquis, aspirin, Lipitor, Bumex, vitamin D, [place], levothyroxine, lisinopril, loratadine, Namenda, metoprolol tartrate, MiraLax, potassium, insulin and Duragesic patches. DRUG ALLERGIES: REPORTED ALLERGIES TO PENICILLINS. THE ALLERGIC REACTIONS WERE UNKNOWN. PHYSICAL EXAMINATION: GENERAL: This is an 82-year-old female patient who has been currently intubated on mechanical ventilator. She was not noted awake. Height of 5 feet, weight of 179 pounds recorded. VITAL SIGNS: For the patient which have been recorded as temperature 99 degree Fahrenheit. The respiratory rate ranged between 18-14, heart rate of 98-156. The blood pressure on Doppler noted 50. Pulse oxygen saturation was measured after the intubation and mechanical ventilation 100% oxygen as 95% saturation. HEENT: The patient is currently intubated. Head was atraumatic. Eyes nonicterus. NECK: Supple. CARDIOVASCULAR: S1, S2 was audible. LUNGS: The patient was noted with [id number] decreased breath sounds in the lungs bilaterally. ABDOMEN: Flat, soft, nontender. EXTREMITIES: Shows significant dryness of the lower extremity. A wound was reported on the hip in the latter part with a black discoloration of the skin on the top. CENTRAL NERVOUS SYSTEM: Unable to assess accurately at the present time. MUSCULOSKELETAL: Without any acute deformities. REVIEW OF LABS: Urine culture, which was sent on 11/15/2018 during the assessment in the Emergency Room noted heavy growth of E. coli. CBC that was done on 11/18/2018 as normal hemoglobin, hematocrit and platelet count. The lactic acid 4.3 on admission. CMP of 11/18/2018; BUN 60, creatinine 3.16, glucose 162. Potassium 5.6. CMP during our assessment in the Emergency Room on 11/15/2018. At that time, BUN was noted 43, creatinine was only 1.66. PT and PTT, which were done this morning were noted as normal results. Urinalysis noted as 3+ bacteria. CBC this morning repeated again. WBC count 9.4, MCV 103, platelet count 226,000. The arterial blood gas was obtained once the patient was intubated, on mechanical ventilation; pH of 7.33, pCO2 of 37, pO2 182, and 100% oxygen at that time. [place], [place] REPORT OF CONSULTATION NAME: SAVANA GRIFFIN UNIT #: [id number] ROOM: [facility] DOCTOR: HARRIS MAHMOOD MD,[facility] BIRTHDATE: [birth year] RADIOLOGY DATA: Reviewed for the patient. The chest x-ray that was done and reviewed from 11/18/2018 was noted with mild pulmonary venous congestion markings without any acute pulmonary infiltration. Chest x-ray done for the patient post-intubation and mechanical ventilation at noon was reviewed, shows endotracheal tube was noted about 3.5 cm above the nancy level. There were no acute pulmonary infiltration including findings of congestive heart failure, pleural effusions. IMPRESSION: The patient who has been currently admitted to the hospital noted with: 1. Hypotension with possibility of sepsis, most likely originating from the urinary tract infection very likely. 2. Acute kidney injury related to the acute tubular necrosis and hypotension and sepsis is a consideration. 3. Wound for this would be also considered the source of infection of the left heel as well. 4. Change in mental status secondary to all of the above. 5. History of past dementia. 6. Hyperkalemia related to the current acute injury. 7. Poor peripheral venous access as well. PLAN OF MANAGEMENT: The patient has currently been assessed and placed on multi-lumen catheter. The infusion of the intravenous fluid and the vasopressors. Maintain mean arterial pressure of 65 or greater. Monitor urinary output. Antibiotics would be used as vancomycin, to be considered until the culture results will be known. Coverage for the Gram-negative urinary tract infection noted on previous admission as well. Ventilator bundle management started. Use of the trophic feeding will be ordered. Close monitoring of the electrolytes for the refeeding syndrome. Usual care. Pain management. Mechanical ventilator setting has been changed to earlier setting to keep the patient on tidal volume about 6-7 mL/kg ideal body weight to prevent the ARDS and lung volume protection strategy. DVT prophylaxis in the form of the heparin will be instituted. [place] culture will be obtained for the patient if not done. Other therapy, plan of management as well. Total time in pulmonary and critical care evaluation and management for the patient was 40 minutes. [place], [place] REPORT OF CONSULTATION NAME: SAVANA GRIFFIN UNIT #: [id number] ROOM: [facility] DOCTOR: JOHNNIE VALADEZ MD BIRTHDATE: [birth year] JOHNNIE IGLESIAS MD CM:CONSTR:REPORT OF CONSULTATION 1435 11/19/18 0031 interface
--- NOTE | ~2018-11-18 | EKG ---
[place], [place] ELECTROCARDIOGRAM REPORT NAME: SAVANA GRIFFNI UNIT #: [id number] ROOM: [facility] DOCTOR: JAVY DRAFT REPORT BIRTHDATE: [birth year] [facility] Test Date: 2018-11-18 Test Time: 09:16:18 Pat Name: SAVANA GRIFFIN Department: Room: [facility] Gender: F Sand Polisher: Palmira Lundberg : 1935 Requested By: JOSE DANIEL BANSAL Order Number: [id number] Reading MD: Yi Gamboa MD Measurements Intervals [place] Rate: 139 P: [place]: QRS: 11 QRSD: 76 T: 186 QT: 294 QTc: 447 Interpretive Statements Atrial fibrillation with rapid V-rate Borderline low voltage, extremity leads Nonspecific T abnormalities, lateral leads Baseline wander in lead(s) V2 Compared to ECG 10/28/2018 06:39:35 Ventricular premature complex(es) now present T-wave abnormality now present Electronically Signed On 11-18-2018 16:07:03 PST by Yi Gamboa MD CM:EKGRPT:ELECTROCARDIOGRAM REPORT [id number] JOSE DANIEL BANSAL EPIPHANY DRAFT REPORT JOSE DANIEL BANSAL
--- NOTE | ~2018-11-18 | WRIGHTHP ---
[place], [place] PATIENT HISTORY AND PHYSICAL EXAM NAME: SAVANA GRIFFIN [facility] #: [id number] UNIT #: [id number] ROOM: [facility] DOCTOR: EM HENSON MD BIRTHDATE: [birth year] DOS: 11/18/2018 HISTORY OF PRESENT ILLNESS: The patient presented to the Emergency Department for change in mental status. The patient had recurrent left hip and left lower extremity pains at the [facility], which were severe. The patient was being treated for a wound in the left lower extremity, probably the left heel. The patient is hypoxemic in the Emergency Department with pulse ox around 80%. The patient was evaluated in the Emergency Department at [facility] and recommended for admission for acute kidney failure because her creatinine had bumped up in the last 3 days from 1.6 to more than 3. The patient was transferred, a rapid response was called when the patient reached her room at the hospital for hypotension and the patient was transferred to ICU and she was intubated and started on mechanical ventilation and put on pressors. The patient is presently on vasopressin, given fluid boluses with normal saline and she remains hypotensive and unresponsive in the ICU. Now, Cardiology, Pulmonary and Nephrology are all following her and she had an IJ central line placed for venous access. The patient intubated and on mechanical ventilation. REVIEW OF SYSTEMS: RESPIRATORY: No recent increase in shortness of breath. GASTROINTESTINAL: No nausea, vomiting, diarrhea or constipation. CARDIOVASCULAR: No recent complaints of chest pains or palpitations. ALLERGIES: Known allergies to PENICILLIN. HOME MEDICATIONS: DuoNeb, apixaban, aspirin, Tylenol, atorvastatin, Bumex, vitamin D, hydrocodone, levothyroxine, lisinopril, loratadine, memantine, metoprolol, nitrofurantoin, MiraLax, potassium, insulin, fentanyl. FAMILY HISTORY: Noncontributory. PHYSICAL EXAMINATION: GENERAL: The patient is unresponsive, intubated and on mechanical ventilation. VITAL SIGNS: Blood pressure 90 systolic over 50 diastolic, breathing 14 times per minute, heart rate of 125 beats per minute, irregular. Temperature of 99.1 degrees Fahrenheit. The patient is unresponsive, intubated on mechanical ventilation. LUNGS: Clear to auscultation. No wheezing. No rhonchi. ABDOMEN: Soft, nontender. No obvious organomegaly. Decreased bowel sounds. No obvious herniation. EXTREMITIES: Shows signs of peripheral arterial embolism with black spots on her ankle and left foot including the left heel. Trace leg and pedal edema. LABORATORY DATA: Lactic acid level elevated to 4.3 and 4.4 now, improved to 2.6 with hydration. Troponin level was normal. No leukocytosis. BUN and creatinine of 60 and 3.16, potassium 5.6. IMPRESSION: 1. The patient presenting with shock, hypotension, atrial fibrillation with rapid ventricular response, unresponsiveness and acute kidney failure, which [place], [place] PATIENT HISTORY AND PHYSICAL EXAM NAME: SAVANA GRIFFIN UNIT #: [id number] ROOM: [facility] DOCTOR: EM HENSON MD BIRTHDATE: [birth year] developed over last 3 days. The patient is being hydrated with normal saline boluses and blood pressure. We are trying to get above 100 systolic with vasopressin. 2. Acute hypotension and shock. The patient is being managed in the ICU with fluid boluses and vasopressin. 3. Acute over chronic kidney failure with certain elevation of creatinine from 1.6-3.4 within 3 days. The patient is presently anuric and Dr. Sadler, the blower and compressor assembler is following her. 4. Type 2 diabetes mellitus. Blood sugars to be monitored and treated. 5. Chronic atrial fibrillation. The patient was anticoagulated with apixaban. Now Cardiology are following. 6. Mixed hyperlipidemia was treated and controlled at [facility]. 7. Late onset Alzheimer's type dementia, was being treated. 8. Benign essential hypertension history. Blood pressure medications have been stopped and Blood pressure being monitored for hypotension. 9. Lactic acidosis from shock, is being managed with hydration with normal saline. 10. Left heel blackened area with superficial skin loss, probably an embolic infarct. We will relieve pressure and wound care to follow. 11. Coronary artery disease of [place] vessels without chest pains. 12. Hypothyroidism, normally replaced with oral levothyroxine. EM HENSON MD CM:HISPHYS:PATIENT HISTORY AND PHYSICAL EXAMINATION 31 21 EM HENSON MD 11/18/182022 interface
[~2018-11-18 09:00] MED LIST changes: +MACROBID100 M1 PO
[2018-11-18] MEDS ORDERED: NORCO 5-325 TA1 EACH PO (09:11)
[2018-11-18] MEDS ORDERED: DURAGESIC1 EAC2 TD (09:13)
--- NOTE | 2018-11-18 09:23 | NUR ---
LAB IN ROOM AND EKG... RESPIRATORY GIVING BREATHING TREATMENT... CHEST XRAY COMPLETE...
--- NOTE | 2018-11-18 09:23 | NUR ---
IV CONFIRMED PATENT FROM EMS; FLUSHES EASILY; NO SIGNS OF INFILTRATION
--- NOTE | 2018-11-18 09:24 | NUR ---
PATIENT HAS A WOUND DRESSED ON LEFT LOWER LEG; IT IS DRESSED AND DATED 11/17/18
[2018-11-18 09:34] LABS: BASO % 0.2 % (0.0-1.0); EOS % 0.1 % (1.0-4.0); HEMATOCRIT 46.2 % (37.0-47.0); HEMOGLOBIN 14.1 g/dl (12.0-16.0); LYMPH # 0.6 10*3/uL (1.3-4.4); LYMPH % 5.9 % (27.0-41.0); MEAN CELL VOLUME 101.5 fl (81.0-99.0); MEAN CORPUSCULAR HGB CONC 30.5 g/dl (33.0-37.0); MEAN PLATELET VOLUME 11.6 fl (9.6-12.3); MONO # 0.5 10*3/uL (0.1-1.0); MONO % 4.7 % (3.0-9.0); NEUT # 8.8 10*3/uL (2.3-7.9); NEUT % 88.6 % (47.0-73.0); NUCLEATED RED BLOOD CELL 0.1 10*3/uL (0.0-0.0); NUCLEATED RED BLOOD CELL 0.5 % (0.0-0.0); PLATELET COUNT AUTOMATED 245 10*3/uL (130-400); RED BLOOD COUNT 4.55 10*6/uL (4.10-5.10); RED CELL DISTRI WIDTH 15.5 % (0-14.5); WHITE BLOOD COUNT 9.9 10*3/uL (4.8-10.8)
[2018-11-18 09:53] LABS: ALBUMIN 2.1 gm/dl (3.1-4.5); ALKALINE PHOSPHATASE 116 U/L (45-117); BUN 60 mg/dl (7-24); CHLORIDE 113 mmol/L (98-107); CREATININE 3.16 mg/dL (0.55-1.02); LIPASE 90 U/L (73-393); POTASSIUM 5.6 mmol/L (3.5-5.1); SGOT/AST 35 IU/L (3-35); SGPT/ALT 13 U/L (12-78); SODIUM 145 mmol/L (136-145); TOTAL PROTEIN 6.6 gm/dL (6.4-8.2)
[2018-11-18 09:56] LABS: TROPONIN I < 0.015 ng/ml (<0.045)
[2018-11-18 09:58] LABS: ACT PARTIAL THROMBO TIME 26.9 SECONDS (20.8-31.5)
--- NOTE | 2018-11-18 10:13 | NUR ---
STRAIGHT CATH FOR URINE... NO COMPLICATIONS... PATIENT TOLERATED WELL... URINE DARK IN COLOR...
[2018-11-18 10:15] LABS: BILIRUBIN 1+ (NEGATIVE); BLOOD NEGATIVE (NEGATIVE); CLARITY SL CLOUDY (CLEAR); COLOR YELLOW (YELLOW); GLUCOSE NEGATIVE (NEGATIVE); KETONE TRACE (NEGATIVE); LEUKO ESTERASE NEGATIVE (NEGATIVE); NITRITE NEGATIVE (NEGATIVE); SPECIFIC GRAVITY >= 1.030 (1.005-1.030); UROBILINOGEN 0.2 E.U./dl (0.2-1.0)
--- NOTE | 2018-11-18 10:15 | NUR ---
DECISION TO ADMIT FOR ACUTE KIDNEY FAILURE.... PROVIDER SPEAKING WITH DR HANCOCK
[2018-11-18 10:23] LABS: BACTERIA 3+
--- NOTE | 2018-11-18 11:06 | NUR ---
FLUIDS WERE WITHHELD UNTIL ADMISSION DUE TO CHF HISTORY....
--- NOTE | 2018-11-18 11:10 | NUR ---
BP 50 SYSTOLIC WITH DOPPLER. PATIENT MINIMALLY RESPONSIVE TO PAINFUL STIMULI. HEART RATE 156 A-FIB. DR. HENSON [facility]
--- NOTE | 2018-11-18 11:30 | NUR ---
RAPID RESPONSE CALLED, DR. STEVENS HERE AND INTUBATED WITH A #7.5 ENDOTUBE AT 22 LIP. OGT PLACED. #16 [place] HAMMONDS PLACED FOR SCANT AM[place] M[place] KAY URINE WITH SEDIMENT.
[2018-11-18 11:52] LABS: BASO % 0.2 % (0.0-1.0); HEMATOCRIT 42.6 % (37.0-47.0); LYMPH # 1.2 10*3/uL (1.3-4.4); LYMPH % 12.6 % (27.0-41.0); MEAN CELL VOLUME 103.6 fl (81.0-99.0); MEAN CORPUSCULAR HGB 31.6 pg (27.0-31.0); MEAN CORPUSCULAR HGB CONC 30.5 g/dl (33.0-37.0); MEAN PLATELET VOLUME 11.6 fl (9.6-12.3); MONO # 0.9 10*3/uL (0.1-1.0); MONO % 9.3 % (3.0-9.0); NEUT # 7.3 10*3/uL (2.3-7.9); NEUT % 77.3 % (47.0-73.0); NUCLEATED RED BLOOD CELL 0.1 10*3/uL (0.0-0.0); NUCLEATED RED BLOOD CELL 0.6 % (0.0-0.0); PLATELET COUNT AUTOMATED 226 10*3/uL (130-400); RED BLOOD COUNT 4.11 10*6/uL (4.10-5.10); RED CELL DISTRI WIDTH 15.5 % (0-14.5); WHITE BLOOD COUNT 9.4 10*3/uL (4.8-10.8)
[2018-11-18 12:10] LABS: ALBUMIN 1.8 gm/dl (3.1-4.5); CREATININE 3.24 mg/dL (0.55-1.02); POTASSIUM 5.5 mmol/L (3.5-5.1); TOTAL PROTEIN 5.5 gm/dL (6.4-8.2); TROPONIN I 0.021 ng/ml (<0.045)
--- NOTE | 2018-11-18 12:10 | NUR ---
DR IGLESIAS AWARE OF CONSULT. WILL SEE PATIENT AILEEN.
--- NOTE | 2018-11-18 12:10 | NUR ---
CALLED DR HENSON WITH CRITICAL LACTIC ACID LEVELS OF 4.4. NO NEW ORDERS RECEIVED.
--- NOTE | 2018-11-18 12:10 | NUR ---
DR GOEL AWARE OF CONSULT, NEW ORDERS RECEIVED.
--- NOTE | 2018-11-18 12:10 | NUR ---
IO STARTED ON PATIENT BY DR MOORE. JUAN HARDING.
[2018-11-18 12:29] LABS: ABG HCO3 19.4 mmol/l (22-26); ABG O2 SATURATION 98.1 % (95-97); ARTERIAL BLOOD GAS PCO2 37.4 mmHg (35-45); ARTERIAL BLOOD GAS PH 7.337 (7.35-7.45)
[2018-11-18 12:31] LABS: ABG BASE EXCESS -5.3 mmol/L (-2.0-2.0)
--- NOTE | 2018-11-18 14:45 | NUR ---
CALLED IN AND UPDATED ON PATIENT CONDITION. NEW ORDERS RECEIVED.
[2018-11-18 14:51] LABS: ABG BASE EXCESS -1.6 mmol/L (-2.0-2.0); ABG HCO3 22.8 mmol/l (22-26); ABG O2 SATURATION 99.4 % (95-97); ARTERIAL BLOOD GAS PCO2 40.1 mmHg (35-45); ARTERIAL BLOOD GAS PH 7.375 (7.35-7.45)
--- NOTE | 2018-11-18 16:00 | NUR ---
DR. NO AND DR GOEL HERE TO SEE PATIENT AND DR. GOEL PLACED A LEFT RADIAL ART LINE.
--- NOTE | 2018-11-18 17:03 | NUR ---
VASOPRESSIN GTT TITRATED DOWN TO 0.05UNITS/MIN FOR MAP 86
[2018-11-18 17:57] LABS: HEMATOCRIT 41.6 % (37.0-47.0); HEMOGLOBIN 12.7 g/dl (12.0-16.0); MEAN CELL VOLUME 101.5 fl (81.0-99.0); MEAN CORPUSCULAR HGB CONC 30.5 g/dl (33.0-37.0); MEAN PLATELET VOLUME 11.5 fl (9.6-12.3); NUCLEATED RED BLOOD CELL 0.1 10*3/uL (0.0-0.0); NUCLEATED RED BLOOD CELL 0.8 % (0.0-0.0); PLATELET COUNT AUTOMATED 242 10*3/uL (130-400); RED CELL DISTRI WIDTH 15.3 % (0-14.5); WHITE BLOOD COUNT 10.5 10*3/uL (4.8-10.8)
--- NOTE | 2018-11-18 18:00 | NUR ---
VASOPRESSIN GTT TITRATED DOWN 0.03MCG/MIN
[2018-11-18 18:01] LABS: ALBUMIN 1.8 gm/dl (3.1-4.5); CREATININE 3.41 mg/dL (0.55-1.02); POTASSIUM 5.8 mmol/L (3.5-5.1); TOTAL PROTEIN 5.5 gm/dL (6.4-8.2)
[2018-11-18] MEDS ORDERED: NEURONTIN600 MG PO (18:02)
[2018-11-18 18:19] LABS: BURR CELLS MODERATE; PLATELET SUFFICIENCY NORMAL (NORMAL); POLYCHROMASIA SLIGHT; TOTAL CELLS COUNTED 100 #CELLS
--- NOTE | 2018-11-18 23:10 | NUR ---
DR NO NOTIFIED OF URINE OUTPUT AND LAB RESULTS AND NEW ORDERS RECEIVED.
[2018-11-19] VITALS (12 sets, daily range): BP systolic 93–127; BP diastolic 40–62
--- NOTE | 2018-11-19 02:53 | NUR ---
[facility] HERE TO TRANSPROT PATIENT TO [facility] PATIENTS SON MAY GRIFFIN WAS CALLED AND INFORMED OF PATIENT BEING TRANSPROTED TO [facility].
--- NOTE | 2018-11-19 03:32 | NUR ---
PATIENT LEFT BY [facility] REPORT CALLED TO [facility] AT [facility].
[2018-11-21 10:08] LABS: CREATININE,URINE 121.7 mg/dL (Not Estab.); MICRO ALBUMIN/CRE RATIO 98.8 (0.0-30.0)
== END 2018-11-19 03:37 | disposition short-term general hospital (02) | DRG 871 ==
LOC: ED 09:00 → EDHOLD 10:21 → ICCU 10:21 → 4E 10:43 → ICCU 11:47
PROVIDERS: Family Medicine; Internal Medicine Cardiovascular Disease; Internal Medicine Critical Care Medicine; Internal Medicine Nephrology; Nurse Practitioner Family; ADMIT Internal Medicine
PROC: 5A1935Z Respiratory Ventilation, Less than 24 Consecutive Hours (ICD-10-PCS; principal; 2018-11-18)
PROC: 02HV33Z Insertion of Infusion Device into Superior Vena Cava, Percutaneous Approach (ICD-10-PCS; principal; 2018-11-18)
PROC: 0BH17EZ Insertion of Endotracheal Airway into Trachea, Via Natural or Artificial Opening (ICD-10-PCS; principal; 2018-11-18)
PROC: B548ZZA Ultrasonography of Superior Vena Cava, Guidance (ICD-10-PCS; principal; 2018-11-18)
DX: A41.9 Sepsis, unspecified organism (principal); J96.00 Acute respiratory failure, unspecified whether with hypoxia or hypercapnia; N17.0 Acute kidney failure with tubular necrosis; I13.0 Hypertensive heart and chronic kidney disease with heart failure and stage 1 through stage 4 chronic kidney disease, or unspecified chronic kidney disease; E87.2 Acidosis; N39.0 Urinary tract infection, site not specified; E87.1 Hypo-osmolality and hyponatremia; L03.116 Cellulitis of left lower limb; L89.629 Pressure ulcer of left heel, unspecified stage; E87.5 Hyperkalemia; B96.89 Other specified bacterial agents as the cause of diseases classified elsewhere; M17.12 Unilateral primary osteoarthritis, left knee; E87.8 Other disorders of electrolyte and fluid balance, not elsewhere classified; E11.22 Type 2 diabetes mellitus with diabetic chronic kidney disease; N18.3 Chronic kidney disease, stage 3 (moderate); I50.9 Heart failure, unspecified; I48.2 Chronic atrial fibrillation; E78.2 Mixed hyperlipidemia; G30.1 Alzheimer's disease with late onset; F02.80 Dementia in other diseases classified elsewhere, unspecified severity, without behavioral disturbance, psychotic disturbance, mood disturbance, and anxiety; I25.10 Atherosclerotic heart disease of native coronary artery without angina pectoris; E03.9 Hypothyroidism, unspecified; Z87.440 Personal history of urinary (tract) infections; Z90.710 Acquired absence of both cervix and uterus; Z86.73 Personal history of transient ischemic attack (TIA), and cerebral infarction without residual deficits; Z88.0 Allergy status to penicillin; Z91.81 History of falling; Z87.01 Personal history of pneumonia (recurrent); Z82.49 Family history of ischemic heart disease and other diseases of the circulatory system; Z79.82 Long term (current) use of aspirin; Z79.899 Other long term (current) drug therapy